=== PATIENT | male | born 1990 | race Caucasian/White ===

== ENCOUNTER 2016-11-07 07:13 | Emergency (ER) | payer OTHER ==
[2016-11-07] MEDS ORDERED: Rabies Vaccine, PCEC INJ* 1 ml IM ONE (07:44)
--- NOTE | 2016-11-07 07:50 | UC ---
Jess Jones Edward, scribed for Lola Monroy MD on 11/07/16 at 0745 . Bite Injury/Animal HPI - HPI Summary HPI Summary: 26 y/o male presents to [facility] s/p bite from cat on his R hand. Patient denies any symptoms currently. The patient was walking outside when he saw a cat and started petting it before it bit him on his R hand. The patient did not see a collar on the cat, and it was possibly feral. He received an initial rabies vaccine and gamma globulin at [facility], without any significant reaction. Sherman authorized him to receive his Day 3 shot here. Patient was previously healthy. - History of Current Complaint Chief Complaint: UCGeneralIllness Stated Complaint: RABIES EXPOSURE Time Seen by Provider: 11/07/16 07:38 Hx Obtained From: Patient Type of Bite: Animal Has Animal Been Immunized?: Unknown Associated Signs And Symptoms: Positive: Negative Hx of Bite: Provoked by: - Petting Animal Available for Observation: No - Allergies/Home Medications Allergies/Adverse Reactions: Allergies Allergy/AdvReac Type Severity Reaction Status Date / Time No Known Allergies Allergy Verified 11/07/16 07:20 Home Medications: Home Medications Sulfamethox/Trimethoprim DS* [Bactrim DS 800/160 TAB*] 1 tab PO BID 11/07/16 [ History Confirmed 11/07/16] PMH/Surg Hx/FS Hx/Imm Hx Previously Healthy: Yes - Surgical History Surgical History: None - Family History Known Family History: Positive: None - Healthy family. - Social History Occupation: Student Lives: Alone Alcohol Use: None Substance Use Type: None Smoking Status (MU): Never Smoked Tobacco Review of Systems Constitutional: Negative Skin: Other - Bite on R hand, on preventative antibiotics without side effects. Eyes: Negative ENT: Negative Respiratory: Negative Cardiovascular: Negative Gastrointestinal: Negative Genitourinary: Negative Motor: Negative Neurovascular: Negative Musculoskeletal: Negative Neurological: Negative Psychological: Negative All Other Systems Reviewed And Are Negative: Yes Physical Exam Triage Information Reviewed: Yes Appearance: Well-Appearing Vital Signs: Initial Vital Signs Temp 99.0 F 11/07/16 07:23 Pulse 59 11/07/16 07:23 Resp 16 11/07/16 07:23 BP 123/69 11/07/16 07:23 Pulse Ox 98 11/07/16 07:23 ENT Exam: Normal Respiratory: Positive: Lungs clear Cardiovascular: Positive: RRR Musculoskeletal Exam: Normal Neurological Exam: Normal Psychological Exam: Normal Skin Exam: Other - healing wound in web space of first and second digits right hand Bite Injury Course/Dx - Course Course Of Treatment: rabies vaccine - Differential Dx/Diagnosis Differential Diagnosis/HQI/PQRI: Cellulitis, Rabies Exposure Provider Diagnoses: possible rabies exposure. Discharge - Discharge Plan Condition: Stable Disposition: HOME Patient Education Materials: Rabies Vaccine (By injection) Additional Instructions: Your next vaccine is due on day 7, and will be given by the health department. The documentation as recorded by the Jess murphy Edward accurately reflects the service I personally performed and the decisions made by , Lola Monroy MD.
== END 2016-11-07 08:18 | disposition home or self-care (01) ==
LOC: UCEAST 07:13
DX: Z20.3 Contact with and (suspected) exposure to rabies (principal); Z29.14 Encounter for prophylactic rabies immune globulin
CPT/HCPCS: 90471; 90675; 99201; G0463

== ENCOUNTER 2017-08-04 07:08 | Emergency (ER) | payer OTHER ==
[2017-08-04 07:28] VITALS: BP 135/67
[2017-08-04] MEDS ORDERED: Acetaminophen TAB* 325 MG PO ONE (07:34)
--- NOTE | 2017-08-04 07:50 | UC ---
Deana Jones Julia, scribed for Karlie Rocha MD on 08/04/17 at 0740 . HPI Febrile Illness - HPI Summary HPI Summary: This patient is a 27 year old M presenting to [facility] accompanied by a friend, Peter, with a chief complaint of fever, chills, rhinorrhea and vomiting upon waking this morning at 03:00. The chills are currently resolved. Pt additionally c/o a headache and eye pain with photophobia. Pt rates the pain 6/ 10 in severity. Pt reports nasal congestion. No sore throat, ear pain. No OTC meds taken. No abdominal pain. No n/v/d. Pt does reports he started bactrim last night. Pt states approx 6 weeks ago was dx with pinworms. 3 weeks ago was put on abx for skin infection in rectal area. Pt states continued with symptoms , returned yesterday and was given bactrim last night. Pt denies discomfort in rectum with BM. Pt does not participate in anal intercourse. Pt has not taken any fever reducing medication. Pt's treatment has been by Dr. Leif Kilpatrick at [place], last night for a pruritic rectal rash described as blotchy and swelling. He was treated for pin worms with similar symptoms about a month ago with a different antibiotic that he does not remember. Medications and allergies reviewed this visit. - History of Current Complaint Chief Complaint: UCGeneralIllness Time Seen by Provider: 08/04/17 07:25 Hx Obtained From: Patient Onset/Duration: Started Hours Ago - fever chills vomiting, Started Weeks Ago - pruitic rectal rash, Resolved - chills Time of Onset: 03:00 Timing: Lasting Hours Initial Severity: Mild Current Severity: Moderate Pain Intensity: 6 Pain Scale Used: 0-10 Numeric Aggravating Factors: Other: - lights Associated Signs and Symptoms: Chills, Headache, Rash, Vomiting, Other: - eye pain - Allergy/Home Medications Allergies/Adverse Reactions: Allergies Allergy/AdvReac Type Severity Reaction Status Date / Time No Known Allergies Allergy Verified 08/04/17 07:17 PMH/Surg Hx/FS Hx/Imm Hx Previously Healthy: Yes - Denies health issues - Surgical History Surgical History: None - Family History Known Family History: Negative: Cardiac Disease - Social History Occupation: Student Lives: With Family Alcohol Use: Occasionally Substance Use Type: None Smoking Status (MU): Never Smoked Tobacco Review of Systems Constitutional: Fever, Chills Skin: Rash Eyes: Photophobia, Other - eye pain Gastrointestinal: Negative - diarrhea, Vomiting, Nausea Genitourinary: Negative All Other Systems Reviewed And Are Negative: Yes Physical Exam Triage Information Reviewed: Yes Appearance: Ill-Appearing, Other: - Pt with photophobia, Vital Signs: Initial Vital Signs Temp 103.0 F 08/04/17 07:18 Pulse 111 08/04/17 07:18 Resp 18 08/04/17 07:18 BP 135/67 08/04/17 07:18 Pulse Ox 99 08/04/17 07:18 Vital Signs Reviewed: Yes Eye Exam: Normal Eyes: Positive: Conjunctiva Clear ENT: Positive: Other - pt with significant photophobia b/l, fluid erythema right TM, turbinates inflammed and boggy + PND No exudate, no erythema uvula midline Dental Exam: Normal Neck exam: Normal Neck: Positive: Supple, Nontender, No Lymphadenopathy. Negative: Nuchal Rigidity, Tenderness @ Respiratory Exam: Normal Respiratory: Positive: Chest non-tender, Lungs clear, Normal breath sounds, No respiratory distress, No accessory muscle use Cardiovascular Exam: Normal Cardiovascular: Positive: RRR, No Murmur, Tachycardia - borderline Abdominal Exam: Normal Abdomen Description: Positive: Nontender, No Organomegaly, Soft, Other: - rectal exam - pt with dry, scaly skin along gluteal fold from cleft to rectum. erythematous base no fluctuance lesions, induration Pt poorly tolerated rectal exam - no fluid collection appreciated, no drainage Bowel Sounds: Positive: Present Musculoskeletal Exam: Normal Musculoskeletal: Positive: Strength Intact Neurological Exam: Normal Psychological Exam: Normal Course/Dx - Course Course Of Treatment: Pt with sudden onset fever, photophobia, congestion since 3 am. Pt is on 2nd round abx for rash on rectum. Potential for deep rectal infection although less concerned following exam. differential also includes viral syndrome, influenza, consideration for meningitis given photophobia and frontal alan. recommend pt to ED for further eval. Pt comfortable and in agreement with plan. Given 975mg APAP at . friend to drive to [facility]. spoke with Dr. Singleton in ED - aware of pt - Diagnoses Clinic Provider Diagnoses: fever. photophobia Discharge - Sign-Out/Discharge Documenting (check all that apply): Discharge - Discharge Plan Condition: Stable Disposition: HOME Discharge Disposition Comment: Pt referred to ED By POV Patient Education Materials: Fever in Adults (ED) Referrals: [facility] [Primary Care Provider] - Additional Instructions: The doctor that evaluated you recommmeds you go directly to the emergency department for further evaluation of your fever, headache and rectal infection as was discussed at the urgent care center. The providers at the emergency department are expecting you - go directly there. If your symptoms change or you have any concerns enroute, tube puller and dial 911 - Billing Disposition and Condition Condition: STABLE Disposition: HOME The documentation as recorded by the Deana murphy Julia accurately reflects the service I personally performed and the decisions made by me, Karlie Rocha MD.
== END 2017-08-04 07:57 | disposition home or self-care (01) ==
LOC: UCEAST 07:08
DX: R50.9 Fever, unspecified (principal); H53.149 Visual discomfort, unspecified; R09.81 Nasal congestion; K62.89 Other specified diseases of anus and rectum
CPT/HCPCS: 99212; A9270-GY; G0463

== ENCOUNTER 2017-08-04 08:15 | Observation (INO) | payer OTHER ==
[2017-08-04] MEDS ORDERED: NS 0.9% 1000 ML*IV.FLUID IV ONE (08:49)
[2017-08-04] MEDS ORDERED: cefTRIAXone(*) 1 GM in NS 0.9% 50 ML* 50 ML IVPB ONE (08:55)
[2017-08-04] MEDS ORDERED: Ondansetron INJ* 2 MG/ML VIAL IV ONE (08:56)
[2017-08-04] MEDS ORDERED: Acetaminophen TAB* 325 MG PO ONE (08:56)
[2017-08-04 09:25] LABS: ABS Basophils 0.1 10^3/ul (0-0.2); ABS Eosinophils 0.1 10^3/ul (0-0.6); ABS Lymphocytes 0.4 10^3/ul (1.0-4.8); ABS Monocytes 0.7 10^3/ul (0-0.8); ABS Neutrophils 15.8 10^3/ul (1.5-7.7); ABS Nucleated RBC 0 10^3/ul; Eosinophil % 0.5 % (0-6); Hematocrit 46 % (42-52); Hemoglobin 15.6 g/dl (14.0-18.0); Lymphocyte % 2.3 % (25-47); Mean Corpuscular HGB Conc 34 g/dl (31-36); Mean Corpuscular Hemoglobin 29 pg (27-31); Mean Corpuscular Volume 84 fL (80-94); Mean Platelet Volume 8.3 um3 (7.4-10.4); Nucleated Red Blood Cells % 0.3; Platelet Count 182 10^3/ul (150-450); Red Blood Count 5.47 10^6/ul (4.0-5.4); Red Cell Distribution Width 13 % (10.5-15)
[2017-08-04 09:29] LABS: Urine Appearance Clear; Urine Blood Negative (Negative); Urine Color Straw; Urine Ketones Negative (Negative); Urine Protein Negative (Negative); Urine Specific Gravity 1.009 (1.010-1.030); Urine Urobilinogen Negative (Negative)
[2017-08-04 09:39] LABS: INR 1.3 (0.77-1.02)
[2017-08-04 09:43] LABS: EGFR Non-African American 102.8 (>60)
--- NOTE | 2017-08-04 10:18 | RAD ---
HISTORY: Frontal headache, photophobia COMPARISONS: None TECHNIQUE: Multiple contiguous axial CT scans were obtained of the head without intravenous contrast. FINDINGS: HEMORRHAGE/INFARCT: There is no hemorrhage or acute infarct. MASSES/SHIFT: There is no mass or shift. EXTRA-AXIAL SPACES: There are no extra-axial fluid collections. SULCI AND VENTRICLES: The sulci and ventricles are normal in size and position for the patient's stated age. CEREBRUM: There are no focal parenchymal abnormalities. BRAINSTEM: There are no focal parenchymal abnormalities. CEREBELLUM: There are no focal parenchymal abnormalities. VESSELS: The vessels are grossly normal. PARANASAL SINUSES: The paranasal sinuses are clear. ORBITS: The orbits are unremarkable. BONES AND SOFT TISSUE: No bone or soft tissue abnormalities are noted. OTHER: None IMPRESSION: NO ACUTE INTRACRANIAL PATHOLOGY.
--- NOTE | 2017-08-04 10:28 | RAD ---
INDICATION: Rash and fever. Rectal infection. COMPARISON: None TECHNIQUE: Noncontrast axial source images were obtained from the hemidiaphragms to the symphysis pubis. This examination was ordered using a renal stone protocol which is performed without oral or intravenous contrast and therefore has inherent limitations when used to evaluate other intra-abdominal or intrapelvic pathology. Consider conventional contrast enhanced imaging if clinically. Lung bases: The lung bases are clear. Liver: The liver is normal in size. Noncontrast imaging shows no evidence of a hepatic mass or ductal dilatation. Gallbladder: There are no calcified gallstones. There is no evidence of wall thickening or pericholecystic fluid.. Spleen: There is mild splenomegaly. The noncontrast CT appearance is normal. Pancreas: Noncontrast imaging shows no pancreatic mass or ductal dilitation. Evaluation is limited without oral intravenous contrast Adrenal glands: No masses are identified. Kidneys/Bladder: There is no evidence of nephrolithiasis or CT evidence of hydronephrosis. Noncontrast imaging shows no evidence of a renal mass. The bladder is unremarkable.. Adenopathy: There is no evidence of intraperitoneal or retroperitoneal adenopathy. Evaluation is limited without oral contrast. Fluid collections: There are no free or localized fluid collections. Vessels: The aorta and iliac vessels are normal in caliber. There are no significant atherosclerotic changes. The IVC appears normal Pelvic organs: The prostate and seminal vesicles appear normal GI tract: Evaluation of the bowel is limited without oral contrast. The stomach, small bowel, and lower GI tract appear grossly normal. There are no obstructive findings. The appendix is visualized and appears normal. Soft tissues: No soft tissue abnormalities of the extraperitoneal abdomen or pelvis are identified. Osseous structures: There are no acute osseous findings. The SI joints and symphysis are intact. IMPRESSION: NONCONTRAST IMAGING SHOWS NO SPECIFIC CT ABNORMALITIES.
--- NOTE | 2017-08-04 11:09 | RAD ---
INDICATION: Fever COMPARISON: None TECHNIQUE: An AP portable view obtained at 1045 hours is submitted. FINDINGS: Bones/Soft Tissues: There are no acute bony findings. Cardiomediastinal: The cardiomediastinal silhouette is normal. Lungs: There are no infiltrates. Pleura: There are no pleural effusions. Other: None IMPRESSION: NO ACTIVE DISEASE.
[2017-08-04] MEDS ORDERED: Lidocaine 1%* 5 ML VIAL INJ ONE (12:36)
[2017-08-04] MEDS ORDERED: Al Hydrox/Mg Hydrox/Simet LIQ* 30 ML UDC PO PRN (14:18)
[2017-08-04] MEDS ORDERED: Ondansetron INJ* 2 MG/ML VIAL IV PRN (14:18)
[2017-08-04] MEDS ORDERED: Morphine VIAL* 4 MG/ML VIAL (1 ml vial) IV PRN (14:18)
[2017-08-04] MEDS ORDERED: Acetaminophen ADULT LIQ* 650 MG/20.3 ML UDC PO PRN (14:27)
--- NOTE | 2017-08-04 16:02 | HP ---
ATTENDING PROVIDER ADDENDUM NOW INCLUDED ON THIS REPORT CC: [facility]; Dr. Danie Perkins * ADMISSION HISTORY AND PHYSICAL: DATE OF ADMISSION: 08/04/17 ATTENDING HOSPITALIST: Lita Pereyra MD * (DICTATED BY ALYSSA ZENDEJAS) PRIMARY CARE PHYSICIAN: [facility]. CHIEF COMPLAINT: Headache and fever. HISTORY OF PRESENT ILLNESS: Robert is a pleasant 27-year-old gentleman, with no significant past medical history, who presented to the emergency room earlier today with complaints of sudden onset of severe headache, fever, and photophobia since 3 o'clock this morning. The patient notes that he was in his normal state of health up until last night when he got up certainly this morning with severe headache associated with nausea and 1 episode of emesis earlier today. He also noticed high fever at home and inability to open his eyes to bright light. He denies any similar complaints in the past or history of migraine headaches. He denied any associated chest pain, shortness of breath , stiff neck, or history of meningitis. 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 He denied any predisposing upper respiratory infection or any other associated symptoms. He was seen in the emergency room and was found to have a temperature of 102.5 as well as leukocytosis with white count of 17,000. He had extensive workup including CT of the head as well as CT of the abdomen and pelvis, chest x-ray, and urinalysis that all came back negative. We offered him performing a lumbar puncture and after obtaining consent, a lumbar puncture was obtained and so far has shown a normal glucose count as well as slightly elevated protein count, but no cellular count available at the time of dictation. Given his ongoing symptoms and the finding of his LP, decision was made for him to be seen by the hospitalist team for admission overnight for observation and to obtain an Infectious Disease consult for possible meningitis. PAST MEDICAL HISTORY: Essentially unremarkable. He denies any history of heart , liver, lung, or kidney disease. He was recently diagnosed with pinworm infection that was treated; however, had some secondary infection due to scratching in the perianal area for which he has been using topical antibiotic ointment and creams. PAST SURGICAL HISTORY: None. CURRENT MEDICATIONS: He is taking Bactrim DS 1 tablet b.i.d. for the time being due to his recent superficial perirectal infection. ALLERGIES: He has no known drug allergies. FAMILY HISTORY: He denies any family history of coronary artery disease or stroke. 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 He is a nonsmoker, who drinks alcohol on the weekends. He denies any illicit drug use. He is originally from [place] and moved to the at age 9 and his parents currently live in [place], [place]. He does not have a healthcare proxy at this time; however, he expressed his mom or dad would be an appropriate healthcare proxy person. REVIEW OF SYSTEMS: See HPI, otherwise negative. Review of 14-point review of systems were done and all negative. PHYSICAL EXAMINATION GENERAL: He is a pleasant, healthy-appearing young male, resting comfortably on bed, appears in no acute distress or discomfort. VITAL SIGNS: Most recent set of vitals with temperature of 101.0, heart rate of 82, respirations of 15, blood pressure of 123/66, and O2 sat of 100% on room air. HEENT: Head is normocephalic, atraumatic. Sclerae anicteric. PERRLA. EOMs intact. There is very obvious photophobia upon shining the bright light to his eyes, but pupils were reactive and equal. There is also bilateral conjunctival injection noted, no evidence of discharge. Oropharynx is pink and moist, no exudate and no enlarged tonsils or cervical lymphadenopathy. NECK: Supple. Trachea midline. No cervical or periauricular lymphadenopathy noted. LUNGS: Clear to auscultation bilaterally. HEART: Regular rate and rhythm. Normal S1 and S2 without rubs, murmurs, or gallops. BACK: Normal curvature. No CVA tenderness. ABDOMEN: Soft, nontender, and nondistended. No hernias, masses, or hepatosplenomegaly. There is no guarding, rigidity, or rebound tenderness. EXTREMITIES: Without cyanosis, clubbing, or edema. RECTAL: Exam deferred at this time. NEUROLOGIC: Revealed normal sensation and normal motor function throughout major muscle groups, 5/5. Cranial nerves grossly intact. LABORATORY WORKUP: CBC done today revealed white count of 17,000, hemoglobin of 15.6, hematocrit of 46, and platelets of 182. His chemical panel revealed a sodium of 138, potassium of 3.7, chloride of 104, CO2 of 23, BUN of 16, creatinine of 0.9, his glucose is 109. LFTs within normal limits. Procalcitonin 0.2. C-reactive protein of 9.15. His urinalysis was essentially negative. Cerebrospinal fluid analysis as mentioned above with glucose of 64 and slightly elevated total protein with value of 54, white blood cells are 4, and red blood cells are 5, and fluid color appears colorless and clear in appearance. IMPRESSION: A 27-year-old gentleman with no significant past medical history, who presented to the emergency room earlier today with sudden onset of severe headache, nausea, vomiting, photophobia with laboratory workup, and lumbar puncture suggesting possible viral meningitis. PLAN/RECOMMENDATIONS: 1. Fever and leukocytosis. The patient will be admitted for IV hydration. He received a dose of Rocephin during his stay in the emergency room. Given analysis of cerebrospinal fluid at this point, he does not appear to have any bacterial involvement if he does have meningitis. Any further antibiotic treatment has been on hold. I discussed the case with Dr. Perkins, who will come later today to see the patient and he agrees that it appears to be a viral illness, possibly viral meningitis and will treat symptomatically. We will also use Tylenol as needed for fever and continue his Bactrim DS for known perirectal skin infection. 2. Headache. Again, the patient appeared to be comfortable at this point after receiving Tylenol and IV hydration. We suspect some element of viral meningitis to be responsible and at this point, he will continue to ambulate as needed, use Tylenol or pain medication, and we will follow him up accordingly. 3. Nausea and vomiting resolved and likely in account to acute onset of headache. 4. DVT prophylaxis. The patient scores 0 on DVT prophylaxis score making him a low risk. We will encourage early ambulation. 5. Code status. The patient is a full code. ALYSSA ZENDEJAS ADDENDUM: The case was reviewed and discussed with ALYSSA Zendejas. Mr. Barrett is a 27-year-old male with no significant past medical history that presented to the emergency room with complaints of severe headache, fever, and photophobia today. His workup in the emergency room included a CT of the brain without contrast that showed no acute intracranial pathology and he underwent LP that showed 4 WBCs with 40 total cell count, 78 lymphocytes and elevated CSF, protein 54. IMPRESSION: The patient likely has a viral meningitis and he will be admitted for symptomatic treatment. The case was discussed with Infectious Disease, and their recommendation was for HIV and syphilis serology and the patient will be seen in consultation. Antibiotics are not indicated at this time. I am in agreement with the current assessment and plan. LITA Pereyra MD [id number]/CPS #: [id number] #: [id number] NEAL
--- NOTE | 2017-08-04 19:50 | ED ---
Josh Jones Gabriel, scribed for Dimitrios Singleton MD on 08/04/17 at 0840 . HPI Febrile Illness - HPI Summary HPI Summary: This patient is a 27 year old M presenting to [facility] accompanied by his friend with a chief complaint of a febrile illness that began this morning. The patient rates the pain 7/10 in severity. Patient reports LYNNE, fever of 104 F, photophobia, vomiting, chills, sinus congestion, and a rash around his anus. Patient denies neck pain, ear pain, dysuria, diarrhea, myalgia, cough, ABD pain , and sore throat. Pt began Bactrim at 2230 last night for a rectal infection and LYNNE developed at 0300 this morning. He was seen at and sent here for a further work up. Pt had a pinworm infection around his anus 2 months ago which developed a secondary infection, he took one dose of amoxicillin but after the 10 day course the rash gradually returned. - History of Current Complaint Chief Complaint: EDFever Time Seen by Provider: 08/04/17 08:27 Hx Obtained From: Patient Onset/Duration: Still Present Timing: Constant Initial Severity: Severe Current Severity: Moderate Pain Intensity: 7 Pain Scale Used: 0-10 Numeric Alleviating Factors: OTC Medicine - motrin Associated Signs and Symptoms: Negative - neck pain, ear pain, sore throat,, Other: - LYNNE, fever of 104 F, photophobia, sinus congestion, and a rash around his anus. - Allergy/Home Medications Allergies/Adverse Reactions: Allergies Allergy/AdvReac Type Severity Reaction Status Date / Time No Known Allergies Allergy Verified 08/04/17 07:17 PMH/Surg Hx/FS Hx/Imm Hx Endocrine/Hematology History: Denies: Hx Diabetes, Hx Thyroid Disease Cardiovascular History: Denies: Hx Hypertension Respiratory History: Denies: Hx Asthma, Hx Chronic Obstructive Pulmonary Disease (COPD) GI History: Denies: Hx Ulcer Opthamlomology History: Denies: Hx Glaucoma Infectious Disease History: No Infectious Disease History: Denies: Hx Clostridium Difficile, Hx Hepatitis, Hx Human Immunodeficiency Virus (HIV), Hx of Known/Suspected MRSA, Hx Shingles, Hx Tuberculosis, Hx Known/ Suspected VRE, Hx Known/Suspected VRSA, History Other Infectious Disease, Traveled Outside the [place] in Last 30 Days - Family History Known Family History: Positive: None - Healthy family. Negative: Cardiac Disease, Respiratory Disease, Seizure Disorder - Social History Occupation: Student Lives: Dormitory/Roommates Alcohol Use: Occasionally Substance Use Type: Reports: None Smoking Status (MU): Never Smoked Tobacco Review of Systems Positive: Fever, Chills ENT: Other - congestion Positive: Other - photophobia . Negative: Sore Throat, Ear Ache Negative: Cough Positive: Vomiting. Negative: Abdominal Pain, Diarrhea Negative: dysuria Positive: Other - neck pain . Negative: Myalgia Positive: Rash Positive: Headache All Other Systems Reviewed And Are Negative: Yes Physical Exam - Summary Physical Exam Summary: General: well-appearing, no pain distress Skin: warm, color reflects adequate perfusion, dry Head: normal Eyes: EOMI, COREY, photophobia, ENT: normal Posterior pharynx benign Neck: supple, nontender, with full ROM Respiratory: CTA, breath sounds present Cardiovascular: RRR Abdomen: soft, nontender Bowel: present Musculoskeletal: normal, strength/ROM intact Neurological: normal, sensory/motor intact, A&O x3 Psychological: affect/mood appropriate GCS:15 Triage Information Reviewed: Yes Vital Signs On Initial Exam: Initial Vitals Temp Pulse Resp BP Pulse Ox 102.5 F 102 20 145/61 99 08/04/17 08:16 08/04/17 08:16 08/04/17 08:16 08/04/17 08:16 08/04/17 08:16 Vital Signs Reviewed: Yes Skin: Positive: Other - IN THE GLUTTEAL FOLDS THERE IS AN ERYTHEMATOUS RASH THAT IS NOT DRAINING OR FIRM. Procedures - Lumbar Puncture Position: Sitting Aseptic Technique: Lidocaine Anesthesia Used: 1.0% Lido Spinal Needle Used: 22 Gauge Diagnostics - Vital Signs Vital Signs Temp Pulse Resp BP Pulse Ox 08/04/17 08:16 102.5 F 102 20 145/61 99 - Laboratory Lab Results: Lab Results 08/04/17 08/04/17 08/04/17 Range/Units 09:00 09:02 09:02 WBC (3.5-10.8) 10^3/ul RBC (4.0-5.4) 10^6/ul Hgb (14.0-18.0) g/dl Hct (42-52) % MCV (80-94) fL MCH (27-31) pg MCHC (31-36) g/dl RDW (10.5-15) % Plt Count (150-450) 10^3/ul MPV (7.4-10.4) um3 Neut % (Auto) (38-83) % Lymph % (Auto) (25-47) % [place] % (Auto) (0-7) % Eos % (Auto) (0-6) % Baso % (Auto) (0-2) % Absolute Neuts (auto) (1.5-7.7) 10^3/ul Absolute Lymphs (auto) (1.0-4.8) 10^3/ul Absolute Monos (auto) (0-0.8) 10^3/ul Absolute Eos (auto) (0-0.6) 10^3/ul Absolute Basos (auto) (0-0.2) 10^3/ul Absolute Nucleated RBC 10^3/ul Nucleated RBC % INR (Anticoag Therapy) 1.30 H (0.77-1.02) APTT 30.4 (26.0-36.3) seconds Sodium 138 L (139-145) mmol/L Potassium 3.7 (3.5-5.0) mmol/L Chloride 104 (101-111) mmol/L Carbon Dioxide 23 (22-32) mmol/L Anion Gap 11 (2-11) mmol/L BUN 16 (6-24) mg/dL Creatinine 0.90 (0.67-1.17) mg/dL Est GFR ( Amer) 132.2 (>60) Est GFR (Non-Af Amer) 102.8 (>60) BUN/Creatinine Ratio 17.8 (8-20) Glucose 109 H (70-100) mg/dL Lactic Acid (0.5-2.0) mmol/L Calcium 9.6 (8.6-10.3) mg/dL Total Bilirubin 0.70 (0.2-1.0) mg/dL AST 19 (13-39) U/L ALT 17 (7-52) U/L Alkaline Phosphatase 86 (34-104) U/L Total Creatine Kinase 135 (10-223) U/L Troponin I 0.01 (<0.04) ng/mL C-Reactive Protein 9.15 H (< 5.00) mg/L Total Protein 7.0 (6.4-8.9) g/dL Albumin 4.5 (3.2-5.2) g/dL Globulin 2.5 (2-4) g/dL Albumin/Globulin Ratio 1.8 (1-3) Procalcitonin (<0.6) ng/mL Urine Color Straw Urine Appearance Clear Urine pH 8.0 (5-9) Ur Specific [place] 1.009 L (1.010-1.030) Urine Protein Negative (Negative) Urine Ketones Negative (Negative) Urine Blood Negative (Negative) Urine Nitrate Negative (Negative) Urine Bilirubin Negative (Negative) Urine Urobilinogen Negative (Negative) Ur Leukocyte Esterase Negative (Negative) Urine Glucose Negative (Negative) Fluid Source Fluid Volume mL Fluid Color Fluid Appearance Fluid WBC /mcL Fluid RBC /mcL Fluid Tot Cell Count Fluid Neutrophils % Fluid Lymphocytes % Fluid Monocytes % Fluid Cell Count Rvw By Fluid Comment CSF Cell Count Tube # CSF Glucose (40-70) mg/dL CSF Total Protein (15-45) mg/dL Syphilis IgG Antibody HIV 1&2 Antibody Influenza A (Rapid) (Negative) Influenza B (Rapid) (Negative) Group A Strep Rapid (Negative) 08/04/17 08/04/17 08/04/17 Range/Units 09:02 09:02 09:02 WBC 17.0 H (3.5-10.8) 10^3/ul RBC 5.47 H (4.0-5.4) 10^6/ul Hgb 15.6 (14.0-18.0) g/dl Hct 46 (42-52) % MCV 84 (80-94) fL MCH 29 (27-31) pg MCHC 34 (31-36) g/dl RDW 13 (10.5-15) % Plt Count 182 (150-450) 10^3/ul MPV 8.3 (7.4-10.4) um3 Neut % (Auto) 93.0 H (38-83) % Lymph % (Auto) 2.3 L (25-47) % [place] % (Auto) 3.9 (0-7) % Eos % (Auto) 0.5 (0-6) % Baso % (Auto) 0.3 (0-2) % Absolute Neuts (auto) 15.8 H (1.5-7.7) 10^3/ul Absolute Lymphs (auto) 0.4 L (1.0-4.8) 10^3/ul Absolute Monos (auto) 0.7 (0-0.8) 10^3/ul Absolute Eos (auto) 0.1 (0-0.6) 10^3/ul Absolute Basos (auto) 0.1 (0-0.2) 10^3/ul Absolute Nucleated RBC 0 10^3/ul Nucleated RBC % 0.3 INR (Anticoag Therapy) (0.77-1.02) APTT (26.0-36.3) seconds Sodium (139-145) mmol/L Potassium (3.5-5.0) mmol/L Chloride (101-111) mmol/L Carbon Dioxide (22-32) mmol/L Anion Gap (2-11) mmol/L BUN (6-24) mg/dL Creatinine (0.67-1.17) mg/dL Est GFR ( Amer) (>60) Est GFR (Non-Af Amer) (>60) BUN/Creatinine Ratio (8-20) Glucose (70-100) mg/dL Lactic Acid 1.0 (0.5-2.0) mmol/L Calcium (8.6-10.3) mg/dL Total Bilirubin (0.2-1.0) mg/dL AST (13-39) U/L ALT (7-52) U/L Alkaline Phosphatase (34-104) U/L Total Creatine Kinase (10-223) U/L Troponin I (<0.04) ng/mL C-Reactive Protein (< 5.00) mg/L Total Protein (6.4-8.9) g/dL Albumin (3.2-5.2) g/dL Globulin (2-4) g/dL Albumin/Globulin Ratio (1-3) Procalcitonin 0.2 (<0.6) ng/mL Urine Color Urine Appearance Urine pH (5-9) Ur Specific [place] (1.010-1.030) Urine Protein (Negative) Urine Ketones (Negative) Urine Blood (Negative) Urine Nitrate (Negative) Urine Bilirubin (Negative) Urine Urobilinogen (Negative) Ur Leukocyte Esterase (Negative) Urine Glucose (Negative) Fluid Source Fluid Volume mL Fluid Color Fluid Appearance Fluid WBC /mcL Fluid RBC /mcL Fluid Tot Cell Count Fluid Neutrophils % Fluid Lymphocytes % Fluid Monocytes % Fluid Cell Count Rvw By Fluid Comment CSF Cell Count Tube # CSF Glucose (40-70) mg/dL CSF Total Protein (15-45) mg/dL Syphilis IgG Antibody Pending HIV 1&2 Antibody Pending Influenza A (Rapid) (Negative) Influenza B (Rapid) (Negative) Group A Strep Rapid (Negative) 08/04/17 08/04/17 08/04/17 Range/Units 09:43 10:29 13:10 WBC (3.5-10.8) 10^3/ul RBC (4.0-5.4) 10^6/ul Hgb (14.0-18.0) g/dl Hct (42-52) % MCV (80-94) fL MCH (27-31) pg MCHC (31-36) g/dl RDW (10.5-15) % Plt Count (150-450) 10^3/ul MPV (7.4-10.4) um3 Neut % (Auto) (38-83) % Lymph % (Auto) (25-47) % [place] % (Auto) (0-7) % Eos % (Auto) (0-6) % Baso % (Auto) (0-2) % Absolute Neuts (auto) (1.5-7.7) 10^3/ul Absolute Lymphs (auto) (1.0-4.8) 10^3/ul Absolute Monos (auto) (0-0.8) 10^3/ul Absolute Eos (auto) (0-0.6) 10^3/ul Absolute Basos (auto) (0-0.2) 10^3/ul Absolute Nucleated RBC 10^3/ul Nucleated RBC % INR (Anticoag Therapy) (0.77-1.02) APTT (26.0-36.3) seconds Sodium (139-145) mmol/L Potassium (3.5-5.0) mmol/L Chloride (101-111) mmol/L Carbon Dioxide (22-32) mmol/L Anion Gap (2-11) mmol/L BUN (6-24) mg/dL Creatinine (0.67-1.17) mg/dL Est GFR ( Amer) (>60) Est GFR (Non-Af Amer) (>60) BUN/Creatinine Ratio (8-20) Glucose (70-100) mg/dL Lactic Acid (0.5-2.0) mmol/L Calcium (8.6-10.3) mg/dL Total Bilirubin (0.2-1.0) mg/dL AST (13-39) U/L ALT (7-52) U/L Alkaline Phosphatase (34-104) U/L Total Creatine Kinase (10-223) U/L Troponin I (<0.04) ng/mL C-Reactive Protein (< 5.00) mg/L Total Protein (6.4-8.9) g/dL Albumin (3.2-5.2) g/dL Globulin (2-4) g/dL Albumin/Globulin Ratio (1-3) Procalcitonin (<0.6) ng/mL Urine Color Urine Appearance Urine pH (5-9) Ur Specific [place] (1.010-1.030) Urine Protein (Negative) Urine Ketones (Negative) Urine Blood (Negative) Urine Nitrate (Negative) Urine Bilirubin (Negative) Urine Urobilinogen (Negative) Ur Leukocyte Esterase (Negative) Urine Glucose (Negative) Fluid Source Cerebral spinal Fluid Volume 1 mL Fluid Color Colorless Fluid Appearance Clear Fluid WBC 4 /mcL Fluid RBC 5 /mcL Fluid Tot Cell Count 40 Fluid Neutrophils 15 % Fluid Lymphocytes 78 % Fluid Monocytes 8 % Fluid Cell Count Rvw By Fluid Comment CSF Cell Count Tube # 4 CSF Glucose (40-70) mg/dL CSF Total Protein (15-45) mg/dL Syphilis IgG Antibody HIV 1&2 Antibody Influenza A (Rapid) Negative (Negative) Influenza B (Rapid) Negative (Negative) Group A Strep Rapid Negative (Negative) 08/04/17 08/04/17 Range/Units 13:10 13:22 WBC (3.5-10.8) 10^3/ul RBC (4.0-5.4) 10^6/ul Hgb (14.0-18.0) g/dl Hct (42-52) % MCV (80-94) fL MCH (27-31) pg MCHC (31-36) g/dl RDW (10.5-15) % Plt Count (150-450) 10^3/ul MPV (7.4-10.4) um3 Neut % (Auto) (38-83) % Lymph % (Auto) (25-47) % [place] % (Auto) (0-7) % Eos % (Auto) (0-6) % Baso % (Auto) (0-2) % Absolute Neuts (auto) (1.5-7.7) 10^3/ul Absolute Lymphs (auto) (1.0-4.8) 10^3/ul Absolute Monos (auto) (0-0.8) 10^3/ul Absolute Eos (auto) (0-0.6) 10^3/ul Absolute Basos (auto) (0-0.2) 10^3/ul Absolute Nucleated RBC 10^3/ul Nucleated RBC % INR (Anticoag Therapy) (0.77-1.02) APTT (26.0-36.3) seconds Sodium (139-145) mmol/L Potassium (3.5-5.0) mmol/L Chloride (101-111) mmol/L Carbon Dioxide (22-32) mmol/L Anion Gap (2-11) mmol/L BUN (6-24) mg/dL Creatinine (0.67-1.17) mg/dL Est GFR ( Amer) (>60) Est GFR (Non-Af Amer) (>60) BUN/Creatinine Ratio (8-20) Glucose (70-100) mg/dL Lactic Acid 1.2 (0.5-2.0) mmol/L Calcium (8.6-10.3) mg/dL Total Bilirubin (0.2-1.0) mg/dL AST (13-39) U/L ALT (7-52) U/L Alkaline Phosphatase (34-104) U/L Total Creatine Kinase (10-223) U/L Troponin I (<0.04) ng/mL C-Reactive Protein (< 5.00) mg/L Total Protein (6.4-8.9) g/dL Albumin (3.2-5.2) g/dL Globulin (2-4) g/dL Albumin/Globulin Ratio (1-3) Procalcitonin (<0.6) ng/mL Urine Color Urine Appearance Urine pH (5-9) Ur Specific [place] (1.010-1.030) Urine Protein (Negative) Urine Ketones (Negative) Urine Blood (Negative) Urine Nitrate (Negative) Urine Bilirubin (Negative) Urine Urobilinogen (Negative) Ur Leukocyte Esterase (Negative) Urine Glucose (Negative) Fluid Source Fluid Volume mL Fluid Color Fluid Appearance Fluid WBC /mcL Fluid RBC /mcL Fluid Tot Cell Count Fluid Neutrophils % Fluid Lymphocytes % Fluid Monocytes % Fluid Cell Count Rvw By Fluid Comment CSF Cell Count Tube # CSF Glucose 64 (40-70) mg/dL CSF Total Protein 54 H (15-45) mg/dL Syphilis IgG Antibody HIV 1&2 Antibody Influenza A (Rapid) (Negative) Influenza B (Rapid) (Negative) Group A Strep Rapid (Negative) Result Diagrams: 08/04/17 09:02 08/04/17 09:02 Lab Statement: Any lab studies that have been ordered have been reviewed, and results considered in the medical decision making process. - Radiology CXR Radiology Interpretation Completed By: Radiologist - no active disease. ED physician has reviewed this report. - CT CT ABD/Pelvis CT Interpretation Completed By: Radiologist - NONCONTRAST IMAGING SHOWS NO SPECIFIC CT ABNORMALITIES. ED physician has reviewed this radiology report. CT Brain CT Interpretation Completed By: Radiologist - NO ACUTE INTRACRANIAL PATHOLOGY. ED physician has reviewed this radiology report. - EKG 0937 Cardiac Rate: NL EKG Rhythm: Sinus Rhythm - at [address] Segment: Normal Ectopy: None Course/Dx - Course Course Of Treatment: DISCUSSED RESULTS WITH THE PATIENT. ADMIT HOSPITALIST. CRITICAL CARE TIME LESS THAN 30 MINUTES. - Diagnoses Provider Diagnoses: Headache, Fever, Photophobia, Perianal rash - Provider Notifications Discussed Care Of Patient With: Jackie Valentine Time Discussed With Above Provider: 13:40 Instructed by Provider To: Admit As Inpatient Discharge - Sign-Out/Discharge Documenting (check all that apply): Discharge - Discharge Plan Condition: Stable Disposition: ADMITTED TO [facility] - Billing Disposition and Condition Condition: STABLE Disposition: HOSP-[facility] The documentation as recorded by the Josh murphy Gabriel accurately reflects the service I personally performed and the decisions made by me, Dimitrios Singleton MD.
[2017-08-04] MEDS: Sulfamethox/Trimethoprim DS 800/160* TAB PO SCH (20:20)
--- NOTE | 2017-08-04 20:43 | HP ---
CC: [facility]; Dr. Perkins, Computer Technologist, Infectious Disease * ADDENDUM: The case was reviewed and discussed with ALYSSA Galvez. Mr. Barrett is a 27-year-old male with no significant past medical history that presented to the emergency room with complaints of severe headache, fever, and photophobia today. His workup in the emergency room included a CT of the brain without contrast that showed no acute intracranial pathology and he underwent LP that showed 4 WBCs with 40 total cell count, 78 lymphocytes and elevated CSF, protein 54. IMPRESSION: The patient likely has a viral meningitis and he will be admitted for symptomatic treatment. The case was discussed with Infectious Disease, and their recommendation was for HIV and syphilis serology and the patient will be seen in consultation. Antibiotics are not indicated at this time. I am in agreement with the current assessment and plan. [id number]/CPS #: [id number] MTDD
[2017-08-05 05:43] LABS: ABS Basophils 0 10^3/ul (0-0.2); ABS Eosinophils 0.5 10^3/ul (0-0.6); ABS Lymphocytes 0.9 10^3/ul (1.0-4.8); ABS Monocytes 0.9 10^3/ul (0-0.8); ABS Neutrophils 7.8 10^3/ul (1.5-7.7); ABS Nucleated RBC 0 10^3/ul; Eosinophil % 5.2 % (0-6); Hematocrit 41 % (42-52); Hemoglobin 13.9 g/dl (14.0-18.0); Lymphocyte % 9.1 % (25-47); Mean Corpuscular HGB Conc 34 g/dl (31-36); Mean Corpuscular Hemoglobin 29 pg (27-31); Mean Corpuscular Volume 85 fL (80-94); Mean Platelet Volume 8.1 um3 (7.4-10.4); Nucleated Red Blood Cells % 0.1; Platelet Count 166 10^3/ul (150-450); Red Blood Count 4.85 10^6/ul (4.0-5.4); Red Cell Distribution Width 13 % (10.5-15); White Blood Count 10.2 10^3/ul (3.5-10.8)
[2017-08-05 06:02] LABS: EGFR Non-African American 105.5 (>60)
[2017-08-05] MEDS: Sulfamethox/Trimethoprim DS 800/160* TAB PO SCH (08:34)
[2017-08-05 09:21] VITALS: BP 111/43
--- NOTE | 2017-08-05 12:17 | CONS ---
CONSULTATION REPORT: DATE OF CONSULT: 08/05/17 REQUESTING PHYSICIAN: Dr. Pereyra. CONSULTING SERVICE: Infectious Disease. REASON FOR CONSULT: Headache and fever. IMPRESSION: 1. Two days of frontal headache, fever without neck stiffness and bilateral conjunctivitis came on a day after starting Bactrim for a perianal rash. Lumbar puncture showed 4 white cells, slight elevation of protein at 54, glucose normal. Gram stain, no organisms and cerebrospinal fluid culture pending. Blood cultures negative. He is afebrile over the last 18 hours, headaches resolved, energy good, appetite good. 2. Perianal and anal rash for about 2 months apparently after pinworm diagnosis and treatment, question autoimmune dermatitis, does not look like a bacterial cellulitis. RECOMMENDATIONS: Stop Bactrim and IV fluids. He can take fluids by mouth now and follow up with Dermatology regarding his perianal rash. We discussed the differential diagnosis includes Bactrim side effect versus viral infection including adenovirus given the conjunctivitis. 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 He had headache, vomiting, what he describes as difficulty looking at bright lights and both eyes were red and irritated. So, he was in [facility], his temperature was 102, he came to the ER, had a lumbar puncture with the results as above. His white count was slightly elevated. He had a dose of ceftriaxone. Today, his white count is normal. His hemoglobin has dropped a point and a half. We discussed hemoconcentration as a possibility. He had a CT abdomen and pelvis that was negative, a brain CT that was negative, a chest x-ray that was negative. He feels back to his usual self today except for slight redness and irritation in both eyes. He has the rash for 2 months, initially diagnosed as pinworm, for which he was treated and then the rash persisted. He was on topical steroids with significant improvement, at the time same he was taking amoxicillin. After stopping both a few days later, his symptoms returned. He does not have pain with a bowel movement, it is mostly itchy and he restarted topical steroid and then Bactrim this week without much improvement. PAST MEDICAL HISTORY: Negative. PAST SURGICAL HISTORY: None. MEDICATIONS: 1. Bactrim double strength by mouth twice daily. 2. Tylenol. 3. Lactated Ringer's infusion. 4. Zofran. FAMILY HISTORY: No recurrent infections or tuberculosis. 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 He was born in [facility], came to the at age 9, lived in [place] until about 3 years ago when he came to [place]. He had sex with women only. He had a new partner about 2 months ago. He denies injection or drug use. Occasional alcohol. REVIEW OF SYSTEMS: All negative to a 14-point review of systems except as noted above. PHYSICAL EXAM: Vital Signs: Temperature is 37, heart rate 80, respiratory rate 18, blood pressure 108/52, oxygen saturation 100% on room air. In general , he is awake, not in distress. Neurologic: He is oriented x3. Follows all commands, moves all of his extremities. HEENT: There is bilateral conjunctival injection. There is no conjunctival hemorrhage. Oropharynx without ulcers or thrush. Neck is supple without mass. Lymph Nodes: There is no inguinal, axillary, or epitrochlear lymphadenopathy. Heart has regular rate and rhythm without murmurs, rubs, or gallops. Lungs are clear to auscultation bilaterally. Abdomen: Soft, nontender, nondistended. There are bowel sounds present. Skin: There is mild perianal erythema and then proximal to the perianal area, there is another patch of erythema, which is nonblanching. There are no vesicles. Musculoskeletal: There is no spine tenderness to palpation or joint synovitis. LABORATORY DATA: White blood cell count 10, hemoglobin 13, platelets 166. Creatinine 0.8. CRP was 9. Procalcitonin 0.2. Blood cultures negative. Please see impressions and recommendations as outlined above, which I have discussed with Dr. Pereyra. Thanks for asking me to see Mr. Barrett in consultation. [id number]/[facility] #: [id number] NEAL
--- NOTE | 2017-08-05 23:22 | DS ---
CC: Dr. Shonda Storm, director of medical service at [facility]; Dr. Perkins ; Dr. Kevin Henry * DISCHARGE SUMMARY: DATE OF ADMISSION: 08/04/17 DATE OF DISCHARGE: 08/05/17 PRIMARY CARE PROVIDER: Dr. Shonda Storm, director of medical service at [facility]. INFECTIOUS DISEASE SPECIALIST: Dr. Perkins. DISPOSAL OPERATOR: Dr. Kevin Henry. DISCHARGE DIAGNOSIS: Aseptic meningitis. SECONDARY DIAGNOSES: 1. History of pinworm infection. 2. History of perianal rash for the past 2 months. MEDICATION LIST: Tylenol 650 mg p.o. q.6 hours p.r.n. pain with fever. HOSPITAL COURSE: Mr. Barrett is a healthy 27-year-old male with a past medical history of a recent pinworm infection followed by perianal rash that presented to the emergency room with complaints of headache and fever. The patient states that about 2 months ago, he was diagnosed with pinworms and treated with a medication that he does not recall the name, but he states he would take 1 pill once a week for 2 weeks. He states that he developed a perianal rash after that and he was initially treated with Augmentin. As he did not have improvement, he was started on Bactrim. On Bactrim, he developed frontal headache, fever with conjunctivitis, but no neck stiffness. He presented to the emergency room where he had a workup that include lumbar puncture that showed 4 white cells with slight elevation of protein at 54 and normal glucose. Gram stain showed no organisms, but please note that a culture is still pending at this time. The patient had significant improvement of his symptoms in the last 24 hours. He was seen in consultation by Infectious Disease and the impression was the patient could have a viral meningitis or this could be aseptic meningitis associated with Bactrim as his symptoms started after he started the medication and subsided when the medication was discontinued. Dr. Perkins felt that if this was a viral infection, he could be identified as given the conjunctivitis. Regarding his perianal rash, there is a question of possible autoimmune dermatitis. So, the patient was referred to see Dr. Henry as outpatient. The patient has symptomatic improvement and he is medically stable to be discharged home today. Please note that at the time of this dictation, HIV and syphilis serology are still pending and the results need to be followed as outpatient. PHYSICAL EXAMINATION: Vital Signs: Temperature 98.1, heart rate is 89, respiratory rate is 18, oxygen saturation is 100% on room air, blood pressure 111/43. General: The patient is a young male, sitting up in bed, in no acute distress. CVS: Normal S1, S2. Regular rate and rhythm. Chest: Breath sounds present bilaterally with no added sounds. Neuro: He is alert, oriented x3. Able to move all 4 extremities. DIET: Regular diet. ACTIVITIES: As tolerated. DISPOSITION: To home. STATUS WHILE IN THE HOSPITAL: Observation. Please keep in mind that this is a summarized version of this patient's hospital stay. If you need more information, please feel free to call me at [phone] or please obtain the full medical records. TIME SPENT: Approximately 45 minutes was spent to complete this discharge. [id number]/[facility] #: [id number] MTDD
== END 2017-08-05 12:10 | disposition home or self-care (01) ==
LOC: ED 08:15 → MED 13:49
PROVIDERS: ADMIT Internal Medicine; ATTEND Internal Medicine
DX: G03.0 Nonpyogenic meningitis (principal); R21 Rash and other nonspecific skin eruption; D72.829 Elevated white blood cell count, unspecified; R11.2 Nausea with vomiting, unspecified
CPT/HCPCS: 36415; 62270; 70450; 71045; 74176; 80053; 81003; 82550; 82945; 83605; 84145; 84157; 84484; 85025; 85610; 85730; 86140; 86592; 86703; 87040; 87070; 87205; 87502; 87651; 89051; 93005; 96365; 96366; 96375; 99285; A9270-GY; G0378; J0696; J2405